=== PATIENT | female | born 1940 | race Caucasian/White ===

== ENCOUNTER 2021-01-05 21:10 | Emergency (ER) | payer OTHER ==
[~2021-01-05 21:10] MED LIST: NORCO 5-325 TA1 EACH PO
[2021-01-05 23:19] LABS: BASOPHIL 0.5 % (0-2); EOSINOPHIL 0.9 % (0-7); HCT 40.8 % (37.0-47.0); HGB 12.9 g/dl (12.5-16.0); LYMPHOCYTE 21.6 % (15-48); MCH 25.7 pg (25.0-31.0); MCHC 31.6 g/dL (32.0-36.0); MCV 81.4 fL (78.0-100.0); MPV 10.9 fL (6.0-9.5); NEUTROPHIL 67.6 % (41-80); NRBC 0; PLT 335 K/uL (150-400); RBC 5.01 M/uL (4.20-5.40); RDW 14.3 % (11.5-14.0); WBC 8.1 K/uL (4.0-10.5)
[2021-01-05 23:29] LABS: ALBUMIN 3.5 g/dL (3.4-5.0); BILIRUBIN - TOTAL 0.7 mg/dL (0.2-1.0); BUN/CREAT RATIO (CALC) 26.3 RATIO; CREATININE 2.24 mg/dL (0.51-0.95); GLOBULIN (CALCULATION) 3.6 g/dL; MAGNESIUM 2.1 mg/dL (1.8-2.4); PHOSPHORUS 3.4 mg/dL (2.6-4.7); POTASSIUM 3.4 mmol/L (3.5-5.1); TOTAL PROTEIN 7.1 g/dL (6.4-8.2)
[2021-01-06 00:34] LABS: INFLUENZA A NAA NEGATIVE (NEGATIVE)
[2021-01-06 00:41] LABS: CORONAVIRUS 2019 SARS-COV-2 POSITIVE (NEGATIVE)
[2021-01-06 01:15] LABS: BILIRUBIN NEGATIVE (NEGATIVE); BLOOD NEGATIVE Ery/uL (NEGATIVE); CLARITY CLEAR (CLEAR); COLOR YELLOW (YELLOW); GLUCOSE (U) NORMAL (NORMAL); LEUKOCYTES 1+ Leu/uL (NEGATIVE); NITRITE NEGATIVE (NEGATIVE); PROTEIN NEGATIVE (NEGATIVE); pH 5.5 (5.0-9.0)
[2021-01-06 01:22] LABS: BACTERIA 2+
[2021-01-06 01:23] LABS: MUCOUS TRACE
[2021-01-06] MEDS ORDERED: AZITHROMYCIN250 MG PO (01:42)
[2021-01-06] MEDS ORDERED: ZOFRAN4 M1 PO (01:42)
== END 2021-01-06 04:00 | disposition home or self-care (01) ==
LOC: FER 21:10
PROVIDERS: Emergency Medicine
DX: U07.1 COVID-19 (principal); N17.9 Acute kidney failure, unspecified; I11.0 Hypertensive heart disease with heart failure; I50.9 Heart failure, unspecified; E11.9 Type 2 diabetes mellitus without complications; Z23 Encounter for immunization; Z88.0 Allergy status to penicillin; Z88.5 Allergy status to narcotic agent
CPT/HCPCS: 36415; 71045; 80053; 81001; 83735; 84100; 84484; 85025; 93005; J2405; J7030; M0243; Q0244; U0002